=== PATIENT | female | born 1970 | race Two or more races ===

== ENCOUNTER 2018-06-05 11:54 | Inpatient (IN) | payer OTHER ==
[2018-06-04 09:05] VITALS: BMI 33.8
[2018-06-05] MEDS ORDERED: BENZOIN TINCTURE SWABSTICK TP ONE (13:44)
[2018-06-05] MEDS ORDERED: HEPARIN NA (PORCINE) 5,000 UNITS/ML 1ML VIAL ONE (13:44)
[2018-06-05] MEDS ORDERED: THROMBIN (BOVINE) 5,000 UNIT VIAL TP ONE (13:45)
[2018-06-05] MEDS ORDERED: DEXAMETHASONE SOD PHOSPHATE 4 MG/1 ML VIAL ONE (15:45)
[2018-06-05] MEDS ORDERED: fentaNYL CITRATE 250 MCG/5 ML VIAL ONE (15:45)
[2018-06-05] MEDS ORDERED: ONDANSETRON 4 MG/2 ML VIAL ONE ×2 (15:45→19:10)
[2018-06-05] MEDS ORDERED: MIDAZOLAM HCL 2 MG/2 ML SINGLE DOSE VIAL ONE (15:46)
[2018-06-05] MEDS ORDERED: ROCURONIUM BROMIDE 50 MG/5 ML VIAL ONE (15:46)
[2018-06-05] MEDS ORDERED: PROPOFOL 20 ML ONE ×10 (15:46→19:36)
[2018-06-05] MEDS ORDERED: HYDROmorphone HCl 2 MG/ML VIAL ONE ×2 (17:18→17:35)
[2018-06-05] MEDS ORDERED: ceFAZolin SODIUM 1 GM VIAL IVPB ONE (17:20)
[2018-06-05] MEDS ORDERED: VANCOMYCIN 1,000 MG VIAL (RESTRICTED TO ID ONLY) IVPB ONE (17:45)
[2018-06-05] MEDS ORDERED: ePHEDrine SULFATE 50 MG/1 ML AMPULE ONE (17:53)
[2018-06-05] MEDS ORDERED: GLYCOPYRROLATE 0.2 MG/1 ML VIAL ONE (19:10)
[2018-06-05] MEDS ORDERED: NEOSTIGMINE METHYLSULFATE 0.5 MG/1 ML - 10 ML MDV ONE (19:10)
[2018-06-05] MEDS ORDERED: ceFAZolin SODIUM 1 GM VIAL ONE (19:50)
[2018-06-05] MEDS ORDERED: SODIUM CHLORIDE 1,000 ML IV SCH (21:00)
[2018-06-05] MEDS ORDERED: ACETAMINOPHEN INJECTION 100 ML IVPB ONE (21:05)
[2018-06-05] MEDS ORDERED: HYDROmorphone *PCA* 10MG/50ML DISP.SYRIN PCA ONE (21:05)
[2018-06-05] MEDS ORDERED: BENZOCAINE/MENTH/CETYLPYRD CL 1 EACH LOZENGE MM PRN ×2 (22:56→23:16)
[2018-06-05] MEDS ORDERED: DOCUSATE NA 100 MG/10 ML UNIT-DOSE CUPS PO PRN (22:58)
[2018-06-05] MEDS ORDERED: ONDANSETRON 4 MG TABLET PO PRN (22:59)
--- NOTE | 2018-06-05 23:14 | CONSULT ---
Consultation: REQUESTING PROVIDER: CONSULT REQUEST: We have been asked to medically evaluate this patient for ICU. HISTORY OF PRESENT ILLNESS: Pt is a 48 y/o F with PMH fibromyalgia, gerd, hiatal hernia, htn, hypothyroid, neuropathy, obesity, zain, panic disorder, sciatica, spinal stenosis who had cervical fusion this afternoon. On my interview, pt was somewhat somnolent and unable to give meaningful history. Denies pain/discomfort at this time. REVIEW OF SYSTEMS: CONSTITUTIONAL: Absent: fever, chills, diaphoresis, generalized weakness, malaise, loss of appetite, weight change HEENT: Absent: rhinorrhea, nasal congestion, throat pain, throat swelling, difficulty swallowing, mouth swelling, ear pain, eye pain, visual changes CARDIOVASCULAR: Absent: chest pain, syncope, palpitations, irregular heart rate, lightheadedness , peripheral edema RESPIRATORY: Absent: cough, shortness of breath, dyspnea with exertion, orthopnea, wheezing, stridor, hemoptysis GASTROINTESTINAL: Absent: abdominal pain, abdominal distension, nausea, vomiting, diarrhea, constipation, melena, hematochezia GENITOURINARY: Absent: dysuria, frequency, urgency, hesitancy, hematuria, flank pain, genital pain MUSCULOSKELETAL: Absent: myalgia, arthralgia, joint swelling, back pain, neck pain SKIN: Absent: rash, itching, pallor HEMATOLOGIC/IMMUNOLOGIC: Absent: easy bleeding, easy bruising, lymphadenopathy, frequent infections ENDOCRINE: Absent: unexplained weight gain, unexplained weight loss, heat intolerance, cold intolerance NEUROLOGIC: Absent: headache, focal weakness or paresthesias, dizziness, unsteady gait, seizure, mental status changes, bladder or bowel incontinence PSYCHIATRIC: Absent: anxiety, depression, suicidal or homicidal ideation, hallucinations. PHYSICAL EXAMINATION Vital Signs - 24 hr 06/05/18 12:48 Temperature 97.7 F Pulse Rate 74 Respiratory 16 Rate Blood Pressure 110/64 O2 Sat by Pulse 98 Oximetry (%) Gen: Somnolent HEENT: NCAT Neck: no jvd, surgical site cdi Cardio: rrr, normal s1s2, no mrg Pulm: cta bl abd: obese, nondistended, soft, nontender, diminished bowel sounds Ext: no edema Laboratory Results - last 24 hr 06/05/18 06/05/18 12:12 13:30 Blood Type B POSITIVE B POSITIVE Antibody Screen Negative Active Medications Generic Name Dose Route Start Last Admin Trade Name Freq PRN Reason Stop Dose Admin Pneumococcal 13-Valent Conj Vacc 0.5 ml 06/06/18 12:41 Prevnar 13 Syringe - IM 06/06/18 12:42 .ONCE ONE ASSESSMENT/PLAN: Pt is a 48 y/o F with PMH fibromyalgia, gerd, hiatal hernia, htn, hypothyroid, neuropathy, obesity, zain, panic disorder, sciatica, spinal stenosis who had cervical fusion this afternoon. #s/p cervical fusion pod#0 -orders per surgery -ancef -decadron -oxycodone -cbc, cmp daily -neuro monitor q 2h -liquid diet. advance to soft as tolerated -cepachol lozenge -vital signs q4h -monitor I/O -OOB w/ assist -keep dressing in place -stool softeners -zofran -protonix -NO NSAIDS x 3 months -Shower friday (keep dressing covered) -Possible D/C Friday. D/C instructions in paper chart #HTN -hold coreg, spironolactone #GERD -hold ranitidine -on protonix #ZAIN -c/w cpap Note: Will hold home meds until pt is awake to take po. HR and BP currently wnl. Coreg 12.5mg Ergocalciferol 50,000u Hydrocodone-acetaminophen 1 tab BID Simvastatin 20 Spironolactone 25 Venlafaxine 37.5 Zolpidem 6.25 Duloxetine 20 Ranitidine 300 Tramadol 50 Dispo: We will continue to follow the patient. Thank you for this consultative opportunity. Visit type - Emergency Visit Emergency Visit: Yes ED Registration Date: 06/05/18 Care time: The patient presented to the Emergency Department on the above date and was hospitalized for further evaluation of their emergent condition. - New Patient This patient is new to me today: Yes Date on this admission: 06/05/18 - Critical Care Critical Care patient: Yes Total Critical Care Time (in minutes): 45 Critical Care Statement: The care of this patient involved high complexity decision making to prevent further life threatening deterioration of the patient 's condition and/or to evaluate & treat vital organ system(s) failure or risk of failure.
[2018-06-06] MEDS: ceFAZolin 1 GRAM PREMIX BAG IVPB SCH ×2 (01:21→08:45)
[2018-06-06] MEDS: oxyCODONE HCL 5 MG TABLET PO SCH ×5 (01:22→16:59)
[2018-06-06] MEDS ORDERED: HYDROmorphone *PCA* 10MG/50ML DISP.SYRIN PCA SCH (01:45)
--- NOTE | 2018-06-06 04:48 | PN ---
Physical Exam: SUBJECTIVE: Patient seen and examined at bedside. POD 0 C5-7 anterior discectomy /laminectomy w/ fusion. Patient states pain controlled w/ ASSOCIATE TEACHER. No other complaints. OBJECTIVE: Vital Signs Period Temp Pulse Resp BP Sys/Nam Pulse Ox Last 24 Hr 97.3 F-98 F 58-74 12-16 92-110/61-85 98-98 GENERAL: The patient is awake, alert, and fully oriented, in no acute distress. HEAD: Normal with no signs of trauma. EYES: PERRL, extraocular movements intact, sclera anicteric, conjunctiva clear. No ptosis. NECK: There is a surgical bandage over the anterior neck where incision was made. Bandage in mildy soaked with blood. No active drainage of bleeding seen. LUNGS: Breath sounds equal, clear to auscultation bilaterally, no wheezes, no crackles, no accessory muscle use. HEART: Regular rate and rhythm, S1, S2 without murmur, rub or gallop. ABDOMEN: Soft, nontender, nondistended, normoactive bowel sounds, no guarding, no rebound, no hepatosplenomegaly, no masses. EXTREMITIES: 2+ pulses, warm, well-perfused, no edema. NEUROLOGICAL: Cranial nerves II through X grossly intact. Normal speech. strength 5/5 in all 4 limbs SKIN: Warm, dry, normal turgor, no rashes or lesions noted Laboratory Results - last 24 hr 06/05/18 06/05/18 12:12 13:30 Blood Type B POSITIVE B POSITIVE Antibody Screen Negative Active Medications Generic Name Dose Route Start Last Admin Trade Name Freq PRN Reason Stop Dose Admin Acetaminophen 650 mg 06/06/18 04:00 Tylenol - PO Q6H PRN PAIN OR FEVER Benzocaine/Menthol 1 each 06/05/18 22:56 Cepacol Lozenge - MM PRN PRN SORE THROAT Cefazolin Sodium 1 gm 06/06/18 01:10 06/06/18 01:21 Ancef 1 Gm Premixed Ivpb - IVPB 06/06/18 09:11 1 gm Q8H MIKAELA Administration Dexamethasone Sodium Phosphate 10 mg 06/06/18 09:00 Decadron Injection - IVPUSH 06/06/18 09:01 ONCE ONE Docusate Sodium 100 mg 06/05/18 22:58 Colace Liquid - PO DAILY PRN CONSTIPATION Hydromorphone HCl 10 mg 06/06/18 01:45 Dilaudid Wedding Planner - ASSOCIATE TEACHER 06/13/18 01:33 ASSOCIATE TEACHER MIKAELA Protocol Sodium Chloride 1,000 mls @ 100 mls/hr 06/05/18 21:00 06/06/18 01:07 Normal Saline - IV Not Given ASDIR MIKAELA Cefazolin Sodium 1 gm in 50 mls @ 100 mls/hr 06/05/18 23:00 Ancef 1 Gm Premixed Ivpb - IVPB 06/06/18 23:00 Q8H-IV MIKAELA Ondansetron HCl 4 mg 06/05/18 21:00 Zofran Injection IVPUSH Q6H PRN NAUSEA AND/OR VOMITING Ondansetron HCl 4 mg 06/05/18 22:59 Zofran - PO Q6H PRN NAUSEA AND/OR VOMITING Oxycodone HCl 10 mg 06/06/18 00:00 06/06/18 01:29 Roxicodone - PO Not Given Q6HPO MIKAELA Oxycodone HCl 10 mg 06/05/18 22:54 Roxicodone - PO Q6H PRN PAIN LEVEL 1-5 Pantoprazole Sodium 40 mg 06/06/18 10:00 Protonix Iv IVPUSH DAILY MIKAELA Pneumococcal 13-Valent Conj Vacc 0.5 ml 06/06/18 12:41 Prevnar 13 Syringe - IM 06/06/18 12:42 .ONCE ONE ASSESSMENT/PLAN: Pt is a 48 y/o F with PMH fibromyalgia, gerd, hiatal hernia, htn, hypothyroid, neuropathy, obesity, zain, panic disorder, sciatica, spinal stenosis who is POD0 c5-7 discectomy and fusion w/ Dr. Taylor. #POD 0 c5-7 discectomy and fusion -dilaudid ASSOCIATE TEACHER for pain control -NPO until flatus -activity/PT as per Dr. Taylor -resume home medications -holding flexeril and ambien while on ASSOCIATE TEACHER -holding lasix while on fluids #FEN -NS @ 100 -lytes WNL -NPO until flatus #Prophy -holding AC -TEDS and SCDs as per Dr. Taylor #dispo -admit ICU Visit type - Emergency Visit Emergency Visit: Yes ED Registration Date: 06/05/18 Care time: The patient presented to the Emergency Department on the above date and was hospitalized for further evaluation of their emergent condition. - New Patient This patient is new to me today: Yes Date on this admission: 06/06/18 - Critical Care Critical Care patient: Yes Total Critical Care Time (in minutes): 40 Critical Care Statement: The care of this patient involved high complexity decision making to prevent further life threatening deterioration of the patient 's condition and/or to evaluate & treat vital organ system(s) failure or risk of failure. - Discharge Referral Referred to [facility] Med P.C.: No
[2018-06-06] MEDS: CEFAZOLIN 1 GM/D5W 1 GM/50 ML BAG IVPB SCH ×2 (04:49→04:50)
[2018-06-06 06:03] LABS: BASO % 0.2 % (0-2.0); HEMATOCRIT 36.7 % (32.4-45.2); HEMOGLOBIN 12.7 GM/dL (10.7-15.3); LYMPH % 7.6 % (8-40); MCH 30.6 pg (25.7-33.7); MCHC 34.6 g/dl (32.0-36.0); MEAN CELL VOLUME 88.3 fl (80-96); MEAN PLT VOLUME 7.3 fl (7.5-11.1); MONO % 3.2 % (3.8-10.2); PLATELET COUNT 252 K/MM3 (134-434); RBC 4.16 M/mm3 (3.60-5.2); RDW 13.5 % (11.6-15.6); WHITE BLOOD COUNT 10.1 K/mm3 (4.0-10.0)
[2018-06-06 06:41] LABS: ALK PHOS 146 U/L (45-117); ANION GAP 4 MMOL/L (8-16); BILIRUBIN,TOTAL 0.3 mg/dL (0.2-1); BLOOD UREA NITROGEN 14 mg/dL (7-18); CALCIUM 8.2 mg/dL (8.5-10.1); CHLORIDE 105 mmol/L (98-107); CO2 27 mmol/L (21-32); CREATININE 0.9 mg/dL (0.55-1.3); GLUCOSE,RANDOM 112 mg/dL (74-106); POTASSIUM 4.2 mmol/L (3.5-5.1); SGOT/AST 19 U/L (15-37); SGPT/ALT 22 U/L (13-61); SODIUM 137 mmol/L (136-145); TOT PROT 7.2 g/dl (6.4-8.2)
--- NOTE | 2018-06-06 06:50 | PN ---
Teaching Attending Note Name of Resident: Diogenes Henson ATTENDING PHYSICIAN STATEMENT I saw and evaluated the patient. I reviewed the resident's note and discussed the case with the resident. I agree with the resident's findings and plan as documented. SUBJECTIVE: Seen and examined; please refer to resident note for further info. Thank you Dr. Taylor for allowing us to take part in the care of your patient. Seen in ICU. Slightly drousy. Pain controlled. No flatus or BM 10 sys ROS done and negative aside from HPI OBJECTIVE: VS, labs, imaging reviewed NAD, AAO, resting comfortably in bed NC AT EOMI PERRLA Neck with dressing ant, c/d/i, no s/s infection RRR s1/2 no mgr Lungs CTAB, w/ sym exp CN2-12 wnl, no fnd Normal mood, appropriate behavior Tele reviewed operative reports reviewed ASSESSMENT AND PLAN: Patient presents for cervical fusion with Dr. Taylor; POD#0. 1) POD#0 Cervical Fusion -Ultimate management per sgy; no flatus yet. Advance diet per them. Consider DC fluids today as she complains that she swells up and is on lasix. -Pain control, ancef, decadron, monitor neuro checks. -Further management per ICU team 2) HTN -continue home meds; she states the lasix is for HTN and 'fluid retention) so will hold for now as on fluids but resume once OK to DC these 3) GERD -On protonix 4) CIARA -CPAP 5) Fibromyalgia -Continue home meds 6) Hypothyroid -TSH as OP 7) Obesity -General Pediatrician prior to DC Full Code
--- NOTE | 2018-06-06 07:37 | OP ---
DATE OF OPERATION: 06/05/2018 SURGEON: Preet Taylor MD MATERIAL CONTROLLER: SONIDO Rao PREOPERATIVE DIAGNOSIS: C5-C6 and C6-C7 osteophyte disc complex with spinal stenosis, cervical spondylogenic myelopathy and left C6 and C7 radiculopathy. POSTOPERATIVE DIAGNOSIS: C5-C6 and C6-C7 osteophyte disc complex with spinal stenosis, cervical spondylogenic myelopathy and left C6 and C7 radiculopathy. OPERATION PERFORMED: 1. Anterior cervical approach. 2. Anterior cervical discectomy C5-C6, anterior cervical discectomy C6-C7. 3. Partial colpectomy C5, partial colpectomy C6, partial colpectomy C7. 4. Insertion of cage C5-C6 and C6-C7 (biomechanical interbody device x2). 5. Anterior arthrodesis C5-C6, C6-C7. 6. Anterior plating C5-C6, C6-C7. ANESTHESIA: General. ANTIBIOTICS GIVEN: Kefzol 2 g, vancomycin 1 g, Decadron 10 mg given preoperatively. OPERATION IN DETAIL: The patient was correctly identified, brought in the operating room. Imaging was available for intraoperative evaluation. Time-out was called. Patient was placed supine, and bolsters were placed behind the scapulae extending the neck. The shoulders were taped peripherally, distally. Neuromonitoring was performed showing the appropriate levels. At the level of the cricothyroid interval in the lines of Teodoro, an incision was made exposing the platysma. The platysma was split longitudinally. The split platysma enabled easy access to the , that is the plane lateral to the strap muscles with digital palpation, the anterior vertebral bodies were easily palpated, the discs identified, and an 18-gauge needle placed into the C4-C5 disc. This was verified with a lateral fluoroscopic x-ray. At that point, the longus coli with unipolar Bovie was dissected off the actual left and right hand side of the vertebral bodies. Retractors placed in the teeth of the muscle. A [place] pin was placed in C5, and a [place] pin placed in C6. This was verified with another lateral fluoroscopic x-ray. The entire disc using an anulectomy removing the annulus and associated all the disc material with curettes, and using a Midas Yury nelida with a 40-mm betty tip, the bone of the vertebral body was resected in order to achieve the seating of a cage. This was a rectangular cut. Once the cuts had been made, this enabled the seating of a size 8 40-link cage. Once this had been performed and the uncovertebral joints resected using the nelida, the posterior longitudinal ligament was then resected using No. 1 and 2 Kerrison upcuts. The underlying osteophytes all removed, freeing the dura completely from left to right hand side, and ensuring that the lateral gutters were freed and sealed. Hemostasis was achieved. A size 8 cage inserted. The distraction of the discs with the [place] pin device enabled a ligamentotaxis hold on the cage. As the distraction was released, the cage was solidly fixed. The middle [place] pin was left in situ, that is, the [place] Pin in C6, and the C7 vertebral body exposed. Retractors were repositioned to enable this. The annulus was resected, and the entire disc removed in exactly the same way using Midas Yury nelida to create the rectangle and partial colpectomy at C6 and C7 just as we performed the partial colpectomy at C5 and C6. The posterior longitudinal ligaments were identified. The ligament was resected as it was at C5-C6 exposing the theca and dura completely. The size 9 cage measured here with distraction. This enabled a solid fixation of the cages. A 2-level 32-mm Simplicity plate was applied. The 6 screws that were 6 x 12 mm screws were fixed solidly into C5, C6, and C7. Gratifying procedure, all went well. There was thorough lavage. Hemostasis was sound. Closure platysma 2-0 Vicryl, subcutaneous 2-0 Vicryl, skin 3-0 Monocryl with Steri-Strips. No drains utilized. Operation went well, no complications. MD PIEDAD Chong/[id number]
[2018-06-06] MEDS ORDERED: PT OWN MED DRAWER 7, Y5N ONE (08:23)
[2018-06-06] MEDS: ONDANSETRON 4 MG/2 ML VIAL IVPUSH PRN ×2 (08:27→11:00)
--- NOTE | 2018-06-06 08:46 | HOSP ---
Subjective - Review of Symptoms Subjective: asymptomatic. continues to have numbness in LUE which she states she had prior to surgery. denies CP, SOB, fever, chills, N/V/C/D Current Medications Generic Name Dose Route Start Last Admin Trade Name Freq PRN Reason Stop Dose Admin Acetaminophen 650 mg 06/06/18 04:00 Tylenol - PO Q6H PRN PAIN OR FEVER Benzocaine/Menthol 1 each 06/05/18 22:56 Cepacol Lozenge - MM PRN PRN SORE THROAT Carvedilol 12.5 mg 06/06/18 22:00 Coreg - PO HS MIKAELA Carvedilol 25 mg 06/06/18 10:00 Coreg - PO DAILY MIKAELA Cefazolin Sodium 1 gm 06/06/18 01:10 06/06/18 01:21 Ancef 1 Gm Premixed Ivpb - IVPB 06/06/18 09:11 1 gm Q8H MIKAELA Administration Dexamethasone Sodium Phosphate 10 mg 06/06/18 09:00 06/06/18 08:29 Decadron Injection - IVPUSH 06/06/18 09:01 10 mg ONCE ONE Administration Docusate Sodium 100 mg 06/05/18 22:58 Colace Liquid - PO DAILY PRN CONSTIPATION Furosemide 40 mg 06/06/18 10:00 Lasix - PO DAILY REPLACED BY [facility] Hydromorphone HCl 10 mg 06/06/18 01:45 06/06/18 04:49 Dilaudid Cash Accountant - LOOM CHANGEOVER OPERATOR 06/13/18 01:33 Not Given LOOM CHANGEOVER OPERATOR REPLACED BY [facility] Protocol Sodium Chloride 1,000 mls @ 100 mls/hr 06/05/18 21:00 06/06/18 01:07 Normal Saline - IV Not Given ASDIR MIKAELA Ondansetron HCl 4 mg 06/05/18 21:00 Zofran Injection IVPUSH Q6H PRN NAUSEA AND/OR VOMITING Ondansetron HCl 4 mg 06/05/18 22:59 Zofran - PO Q6H PRN NAUSEA AND/OR VOMITING Oxycodone HCl 10 mg 06/06/18 00:00 06/06/18 06:00 Roxicodone - PO Not Given Q6HPO MIKAELA Oxycodone HCl 10 mg 06/05/18 22:54 Roxicodone - PO Q6H PRN PAIN LEVEL 1-5 Pantoprazole Sodium 40 mg 06/06/18 10:00 Protonix Iv IVPUSH DAILY MIKAELA Pneumococcal 13-Valent Conj Vacc 0.5 ml 06/06/18 12:41 Prevnar 13 Syringe - IM 06/06/18 12:42 .ONCE ONE Spironolactone 12.5 mg 06/06/18 10:00 Aldactone - PO DAILY MIKAELA Last Vital Signs Temp Pulse Resp BP Pulse Ox 98.2 F 74 16 117/74 100 06/06/18 07:35 06/06/18 07:35 06/06/18 07:35 06/06/18 07:35 06/06/18 07:36 General NAD HEENT anterior cervical bandage iwth dried blood CV S1 S2 RRR no murmur/rub/gallop Lungs CTA B/L no wheezing/rales/rhonchi Abdomen soft NT/ND Extremities no pedal edema, sensation and strength grossly intact CBCD WBC 10.1 K/mm3 (4.0-10.0) H 06/06/18 05:30 RBC 4.16 M/mm3 (3.60-5.2) 06/06/18 05:30 Hgb 12.7 GM/dL (10.7-15.3) 06/06/18 05:30 Hct 36.7 % (32.4-45.2) 06/06/18 05:30 MCV 88.3 fl (80-96) 06/06/18 05:30 MCHC 34.6 g/dl (32.0-36.0) 06/06/18 05:30 RDW 13.5 % (11.6-15.6) 06/06/18 05:30 Plt Count 252 K/MM3 (134-434) 06/06/18 05:30 MPV 7.3 fl (7.5-11.1) L 06/06/18 05:30 CMP Sodium 137 mmol/L (136-145) 06/06/18 05:30 Potassium 4.2 mmol/L (3.5-5.1) 06/06/18 05:30 Chloride 105 mmol/L (98-107) 06/06/18 05:30 Carbon Dioxide 27 mmol/L (21-32) 06/06/18 05:30 Anion Gap 4 MMOL/L (8-16) L 06/06/18 05:30 BUN 14 mg/dL (7-18) 06/06/18 05:30 Creatinine 0.9 mg/dL (0.55-1.3) 06/06/18 05:30 Creat Clearance w eGFR > 60 (>60) 06/06/18 05:30 Calcium 8.2 mg/dL (8.5-10.1) L 06/06/18 05:30 Total Bilirubin 0.3 mg/dL (0.2-1) 06/06/18 05:30 AST 19 U/L (15-37) 06/06/18 05:30 ALT 22 U/L (13-61) 06/06/18 05:30 Alkaline Phosphatase 146 U/L (45-117) H 06/06/18 05:30 Total Protein 7.2 g/dl (6.4-8.2) 06/06/18 05:30 Albumin 3.0 g/dl (3.4-5.0) L 06/06/18 05:30 A/P 48yo F wtih PMH HTN, GERD, CIARA on Cpap, hypothyroid came for elective cervical fusion surgery 1. s/p C5-C7 cervical fusion- currently pain is controlled on LOOM CHANGEOVER OPERATOR pump. will switch to oral medications. further recommendations per ortho. 2. Leukocytosis- likely reactive from surgery. no signs of infection. received yobani-operative abx. will hold more abx at this time 3. HTN- cont home medications 4. CIARA- has home CPAP machine 5. hypothyroid- cont home medications 6. DVT ppx- SCD 7. stable for transfer to floors The care of this patient involved high complexity decision making to prevent further life threatening deterioration of the patient's condition and/or to evaluate & treat vital organ system(s) failure or risk of failure. 38 minutes Physical Examination Vital Signs: Vital Signs Temperature 98.2 F 06/06/18 07:35 Pulse Rate 74 06/06/18 07:35 Respiratory Rate 16 06/06/18 07:35 Blood Pressure 117/74 06/06/18 07:35 O2 Sat by Pulse Oximetry (%) 100 06/06/18 07:36 Labs: CBC, BMP 06/06/18 05:30 06/06/18 05:30
[2018-06-06] MEDS ORDERED: DEXAMETHASONE SOD PHOSPHATE 10 MG/1 ML VIAL IVPUSH ONE ×2 (09:00→10:00)
[2018-06-06] MEDS ORDERED: PANTOPRAZOLE SODIUM 40 MG VIAL IVPUSH SCH (10:00)
[2018-06-06] MEDS ORDERED: CARVEDILOL 25 MG TABLET (FP) PO SCH (10:00)
[2018-06-06] MEDS ORDERED: SPIRONOLACTONE 25 MG TABLET (FP) PO SCH (10:00)
[2018-06-06] MEDS ORDERED: FUROSEMIDE 40 MG TABLET (FP) PO SCH (10:00)
[2018-06-06] MEDS: ACETAMINOPHEN 325 MG TABLET (FP) PO PRN ×2 (10:55→16:59)
[2018-06-06] MEDS: oxyCODONE HCL 5 MG TABLET PO PRN ×2 (10:55→22:46)
--- NOTE | 2018-06-06 10:55 | PN ---
Progress Note (short form) - Note Progress Note: Anesthesiology: POD #1 - s/p ACDF under general anesthesia. VSS. Pt. doing well, resting comfortably in bed. No apparent anesthetic complications noted. Continue current care.
[2018-06-06] MEDS ORDERED: CYCLOBENZAPRINE HCL 10 MG TABLET (FP) PO PRN (11:34)
[2018-06-06] MEDS ORDERED: GABAPENTIN 100 MG CAPSULE (FP) PO SCH (11:45)
[2018-06-06] MEDS ORDERED: PNEUMOC 13-VAL CONJ-DIP CRM/PF 0.5 ML DISP.SYRIN IM ONE (12:41)
[2018-06-06] MEDS: GABAPENTIN 300 MG CAPSULE (FP) PO SCH ×2 (15:02→22:58)
[2018-06-06] MEDS ORDERED: PNEUMOCOCCAL 23 VACCINE 0.5 ML VIAL IM ONE (18:15)
--- NOTE | 2018-06-06 18:39 | PN ---
Progress Note (short form) - Note Progress Note: POD#1 C/O Sore throat and mild trapezial discomfort Wound Serosangeouness moist bandage Neuro Hand symptoms gratifyingly better neuro at baseline Voice Normal Swallowing Normal Neck No swelling Assess Doing well PLAN D/C home Friday Pain Mx PT FWBAT Keep wound dry See in office in 5 days
[2018-06-06] MEDS ORDERED: CYCLOBENZAPRINE HCL 10 MG TABLET (FP) PO SCH (22:00)
[2018-06-06] MEDS ORDERED: CARVEDILOL 12.5 MG TABLET (FP) PO SCH (22:00)
[2018-06-07] MEDS: oxyCODONE HCL 5 MG TABLET PO SCH ×4 (00:19→17:31)
[2018-06-07] MEDS ORDERED: BENZOCAINE/MENTH/CETYLPYRD CL 1 EACH LOZENGE MM PRN (07:18)
[2018-06-07] MEDS ORDERED: ACETAMINOPHEN 325 MG TABLET (FP) PO PRN (07:18)
[2018-06-07] MEDS ORDERED: ONDANSETRON 4 MG/2 ML VIAL IVPUSH PRN (07:18)
[2018-06-07] MEDS ORDERED: oxyCODONE HCL 5 MG TABLET PO PRN (07:18)
[2018-06-07] MEDS ORDERED: ONDANSETRON 4 MG TABLET PO PRN (07:18)
[2018-06-07] MEDS ORDERED: DOCUSATE NA 100 MG/10 ML UNIT-DOSE CUPS PO PRN (07:18)
[2018-06-07 07:54] LABS: BASO % 0.2 % (0-2.0); EOS % 0.1 % (0-4.5); HEMATOCRIT 35.3 % (32.4-45.2); LYMPH % 12.7 % (8-40); MCH 30.2 pg (25.7-33.7); MCHC 34.1 g/dl (32.0-36.0); MEAN CELL VOLUME 88.8 fl (80-96); MEAN PLT VOLUME 7.7 fl (7.5-11.1); PLATELET COUNT 271 K/MM3 (134-434); RBC 3.98 M/mm3 (3.60-5.2); RDW 13.7 % (11.6-15.6); WHITE BLOOD COUNT 14.7 K/mm3 (4.0-10.0)
[2018-06-07] MEDS ORDERED: DOCUSATE NA 100 MG/10 ML UNIT-DOSE CUPS PO SCH (08:15)
[2018-06-07 08:33] LABS: ANION GAP 6 MMOL/L (8-16); BLOOD UREA NITROGEN 14 mg/dL (7-18); CALCIUM 8.3 mg/dL (8.5-10.1); CHLORIDE 106 mmol/L (98-107); CO2 28 mmol/L (21-32); CREATININE 0.8 mg/dL (0.55-1.3); GLUCOSE,RANDOM 106 mg/dL (74-106); POTASSIUM 4.5 mmol/L (3.5-5.1); SODIUM 139 mmol/L (136-145)
[2018-06-07] MEDS ORDERED: PT OWN MED DRAWER 7, Y5N ONE (09:55)
[2018-06-07] MEDS: CARVEDILOL 25 MG TABLET (FP) PO SCH (09:56)
[2018-06-07] MEDS: PANTOPRAZOLE 40 MG TABLET (FP) PO SCH (09:56)
[2018-06-07] MEDS: FUROSEMIDE 40 MG TABLET (FP) PO SCH (09:56)
[2018-06-07] MEDS: CYANOCOBALAMIN 1,000 MCG TABLET (FP) PO SCH (09:56)
[2018-06-07] MEDS: GABAPENTIN 300 MG CAPSULE (FP) PO SCH ×2 (09:56→21:27)
[2018-06-07] MEDS: CHOLECALCIFEROL (VITAMIN D3) 400 UNIT TABLET (FP) PO SCH (09:57)
[2018-06-07] MEDS: SPIRONOLACTONE 25 MG TABLET (FP) PO SCH (09:58)
[2018-06-07] MEDS ORDERED: PANTOPRAZOLE SODIUM 40 MG VIAL IVPUSH SCH (10:00)
--- NOTE | 2018-06-07 10:29 | PN ---
Teaching Attending Note Name of Resident: Tony Ervin ATTENDING PHYSICIAN STATEMENT I saw and evaluated the patient. I reviewed the resident's note and discussed the case with the resident. I agree with the resident's findings and plan as documented. SUBJECTIVE:states pain is improved with pain medication. denies CP, SOB, fever, chills, N/V/C/D OBJECTIVE: Last Vital Signs Temp Pulse Resp BP Pulse Ox 98.2 F 62 20 128/78 100 06/07/18 06:56 06/07/18 06:56 06/07/18 06:56 06/07/18 06:56 06/06/18 07:36 General NAD HEENT anterior cervical bandage wtih dried blood noted. no active draining Lungs CTA B/L no wheezing/rales/rhonchi ASSESSMENT AND PLAN: 48yo F wtih PMH HTN, GERD, CIARA on Cpap, hypothyroid came for elective cervical fusion surgery 1. s/p C5-C7 cervical fusion on 06/05. pain improved. further recommendations per ortho. 2. Leukocytosis- likely reactive from surgery. no signs of infection. received yobani-operative abx. will hold abx at this time 3. HTN- cont home medications 4. CIARA- has home CPAP machine 5. hypothyroid- cont home medications 6. DVT ppx- SCD 7. PT eval. anticipate d/c in next 24H
--- NOTE | 2018-06-07 10:45 | PN ---
Physical Exam: SUBJECTIVE: Patient seen and examined at bedside. POD1 C5-7 anterior discectomy/ laminectomy w/ fusion. Patient states pain improved w/ meds. No other complaints. denies CP, SOB, fever, chills, N/V/C/D, numbness, tingling OBJECTIVE: Vital Signs Period Temp Pulse Resp BP Sys/Nam Pulse Ox Last 24 Hr 97.9 F-98.2 F 60-68 16-20 120-129/77-91 GENERAL: The patient is awake, alert, and fully oriented, in no acute distress. HEAD: Normal with no signs of trauma. EYES: PERRL, extraocular movements intact, sclera anicteric, conjunctiva clear. No ptosis. ENT: nares patent, oropharynx clear without exudates, moist mucous membranes. anterior cervical bandage with dried blood noted. no active draining NECK: Trachea midline, full range of motion, supple. LUNGS: CTAB HEART: RRR, S1, S2 without murmur, rub or gallop. ABDOMEN: Soft, NTND, normoactive bowel sounds, no guarding, no rebound, no masses. EXTREMITIES: 2+ pulses, warm, well-perfused, no edema. NEUROLOGICAL: Cranial nerves II through XII grossly intact. Normal speech, gait not observed. sensation strength grossly intact PSYCH: Normal mood, normal affect. SKIN: Warm, dry, normal turgor, no rashes or lesions noted Laboratory Results - last 24 hr 06/07/18 06/07/18 07:00 07:00 WBC 14.7 H RBC 3.98 Hgb 12.0 Hct 35.3 MCV 88.8 MCH 30.2 MCHC 34.1 RDW 13.7 Plt Count 271 MPV 7.7 Absolute Neuts (auto) 11.5 H Neutrophils % 78.0 Lymphocytes % 12.7 D Monocytes % 9.0 D Eosinophils % 0.1 D Basophils % 0.2 Nucleated RBC % 0 Sodium 139 Potassium 4.5 Chloride 106 Carbon Dioxide 28 Anion Gap 6 L BUN 14 Creatinine 0.8 Creat Clearance w eGFR > 60 Random Glucose 106 Calcium 8.3 L Active Medications Generic Name Dose Route Start Last Admin Trade Name Freq PRN Reason Stop Dose Admin Acetaminophen 650 mg 06/07/18 07:18 Tylenol - PO Q6H PRN PAIN OR FEVER Atorvastatin Calcium 10 mg 06/07/18 22:00 Lipitor - PO HS [facility] Benzocaine/Menthol 1 each 06/07/18 07:18 Cepacol Lozenge - MM PRN PRN SORE THROAT Carvedilol 12.5 mg 06/07/18 22:00 Coreg - PO HS MIKAELA Carvedilol 25 mg 06/07/18 10:00 06/07/18 09:56 Coreg - PO 25 mg DAILY MIKAELA Administration Cholecalciferol 400 unit 06/07/18 10:00 06/07/18 09:57 Vitamin D3 - PO 400 unit DAILY MIKAELA Administration Cyanocobalamin 1,000 mcg 06/07/18 10:00 06/07/18 09:56 Vitamin B12 - PO 1,000 mcg DAILY MIKAELA Administration Cyclobenzaprine HCl 10 mg 06/07/18 22:00 Flexeril - PO HS [facility] Docusate Sodium 100 mg 06/07/18 14:00 Colace - PO TID MIKAELA Furosemide 40 mg 06/07/18 10:00 06/07/18 09:56 Lasix - PO 40 mg DAILY MIKAELA Administration Gabapentin 300 mg 06/07/18 10:00 06/07/18 09:56 Neurontin - PO 300 mg BID MIKAELA Administration Ondansetron HCl 4 mg 06/07/18 07:18 Zofran Injection IVPUSH Q6H PRN NAUSEA AND/OR VOMITING Oxycodone HCl 10 mg 06/07/18 07:18 Roxicodone - PO Q6H PRN PAIN LEVEL 1-5 Oxycodone HCl 10 mg 06/07/18 12:00 Roxicodone - PO Q6HPO [facility] Pantoprazole Sodium 40 mg 06/07/18 10:00 06/07/18 09:56 Protonix - PO 40 mg DAILY MIKAELA Administration Senna 2 tab 06/07/18 22:00 Senna - PO HS [facility] Spironolactone 12.5 mg 06/07/18 10:00 06/07/18 09:58 Aldactone - PO 12.5 mg DAILY MIKAELA Administration ASSESSMENT/PLAN: Pt is a 48 y/o F with PMH fibromyalgia, gerd, hiatal hernia, htn, hypothyroid, neuropathy, obesity, ciara, panic disorder, sciatica, spinal stenosis who is POD1 c5-7 discectomy and fusion w/ Dr. Taylor. s/p C5-C7 cervical fusion on 06/05 pain improved. further recommendations per ortho - See in office in 5 days, bowel regimen Leukocytosis- likely reactive from surgery. no signs of infection, afebrile. received yobani-operative abx. will hold abx at this time HTN- cont home medications CIARA- has home CPAP machine hypothyroid- cont home medications FENA PO hydration replete prn low Na diet encourage ambulation ppx- SCD protonix po Dispo PT eval. anticipate d/c in next 24H See in ortho office in 5 days Visit type - Emergency Visit Emergency Visit: Yes ED Registration Date: 06/05/18 Care time: The patient presented to the Emergency Department on the above date and was hospitalized for further evaluation of their emergent condition. - New Patient This patient is new to me today: Yes Date on this admission: 06/07/18 - Critical Care Critical Care patient: No
[2018-06-07] MEDS: DOCUSATE SODIUM 100 MG CAPSULE (FP) PO SCH ×2 (15:10→21:28)
[2018-06-07] MEDS ORDERED: CARVEDILOL 12.5 MG TABLET (FP) PO SCH (22:00)
[2018-06-07] MEDS ORDERED: SENNOSIDES 8.6MG TABLET (FP) PO SCH (22:00)
[2018-06-07] MEDS ORDERED: ATORVASTATIN CA 10 MG TABLET (FP) PO SCH (22:00)
[2018-06-07] MEDS ORDERED: CYCLOBENZAPRINE HCL 10 MG TABLET (FP) PO SCH (22:00)
[2018-06-08] MEDS: oxyCODONE HCL 5 MG TABLET PO SCH ×2 (02:25→05:44)
[2018-06-08] MEDS: DOCUSATE SODIUM 100 MG CAPSULE (FP) PO SCH ×2 (05:43→14:11)
[2018-06-08] MEDS ORDERED: MAGNESIUM HYDROX 2400MG/30ML ORAL SUSPENSION 30 ML CUP PO ONE (07:46)
--- NOTE | 2018-06-08 07:55 | SURG ---
Surgery Oracle Forms Developer Note Oracle Forms Developer: Caron Anderson PA-C (Suzy) Date of Service: 06/08/18 Diagnosis: C5-C6 and C6-C7 osteophyte disc complex with spinal stenosis, cervical spondylogenic myelopathy and left C6 and C7 radiculopathy Procedure: 1. Anterior cervical approach 2. Anterior cervical discectomy C5-C6, anterior cervical discectomy C6-C7 3. Partial colpectomy C5, partial colpectomy C6, partial colpectomy C7 4. Insertion of cage C5-C6 and C6-C7 (Biomechanical interbody device x2) 5. Anterior arthrodesis C5-C6, C6-C7 6. Anterior plating C5-C6, C6-C7 I was present for the entirety of the operative procedure. For further detail, please refer to operative report. Visit type - Case Type Case Type: Scheduled - Emergency Emergency Visit: No - New patient This patient is new to me today: Yes Date on this admission: 06/08/18 - Critical Care Critical Care patient: No
[2018-06-08] MEDS ORDERED: POLYETHYLENE GLYCOL 3350 119 GM BTL PO ONE (08:10)
[2018-06-08] MEDS ORDERED: PT OWN MED DRAWER 7, Y5N ONE (09:37)
[2018-06-08] MEDS: CYANOCOBALAMIN 1,000 MCG TABLET (FP) PO SCH (09:38)
[2018-06-08] MEDS: FUROSEMIDE 40 MG TABLET (FP) PO SCH (09:38)
[2018-06-08] MEDS: CARVEDILOL 25 MG TABLET (FP) PO SCH (09:38)
[2018-06-08] MEDS: GABAPENTIN 300 MG CAPSULE (FP) PO SCH (09:38)
[2018-06-08] MEDS: PANTOPRAZOLE 40 MG TABLET (FP) PO SCH (09:38)
[2018-06-08] MEDS: SPIRONOLACTONE 25 MG TABLET (FP) PO SCH (09:39)
[2018-06-08] MEDS: CHOLECALCIFEROL (VITAMIN D3) 400 UNIT TABLET (FP) PO SCH (09:42)
[2018-06-08 10:28] VITALS: BP 141/86; PULSE 76; TEMP 98
--- NOTE | 2018-06-08 10:31 | PN ---
Progress Note (short form) - Note Progress Note: POD 3, s/p C5-C6, C6-C7 ACDF Pt seen and examined. States she is doing well. Has been oob without issue. Tolerating soft foods, continues to have a sore throat, though improving. Reports LUE numbness/weakness seems improved. Voiding without issue. Denies cp/ sob, n/v/d, calf pain/edema. Vital Signs Temp 98.0 F 06/08/18 10:00 Pulse 76 06/08/18 10:00 Resp 20 06/08/18 10:00 BP 141/86 06/08/18 10:00 Pulse Ox 98 06/07/18 09:00 Intake & Output 06/07/18 06/07/18 06/08/18 11:59 23:59 11:59 Intake Total 750 250 Balance 750 250 Intake: Oral 750 250 Other: Voiding Method Toilet # Unmeasured Voids Void 2 1 Bowel Movement No No CBC, BMP 06/07/18 07:00 06/07/18 07:00 Gen: awake, alert, nad Neck: Dressing with scant serosanguinous strike through, minimal trace edema, mild ttp in right lower border of dressing. Resp: unlabored on RA Neuro: b/l ue open winder strength intact, b/l ue biceps/triceps/deltoids 5/5, SILT b/ l. B/L LE's 5/5 dorsi/plantarflexion, knee ext/flex, hip flexion, silt b/l A/P: 48 y/o F w/ PMHx fibromyalgia, gerd, hiatal hernia, htn, hypothyroid, neuropathy, obesity, zain, panic disorder, sciatica, spinal stenosis, now POD 3, POD 3, s/p C5-C6, C6-C7 ACDF. -Doing well this AM -Afebrile, VSS -planned for d/c home this morning -Discharge instructions printed and left in chart as [employer] was down at the completion of the case on Friday will d/w attending Dr Taylor
--- NOTE | 2018-06-08 13:01 | DS ---
Physical Exam: SUBJECTIVE: Patient seen and examined at bedside. POD3 C5-7 anterior discectomy/ laminectomy w/ fusion. Patient states pain improved w/ meds. No other complaints. denies CP, SOB, fever, chills, N/V/C/D, numbness, tingling. +flatus OBJECTIVE: Vital Signs Period Temp Pulse Resp BP Sys/Nam Pulse Ox Last 24 Hr 98.0 F-98.7 F 58-76 20-20 125-141/68-86 99 PHYSICAL EXAM GENERAL: The patient is awake, alert, and fully oriented, in no acute distress. HEAD: Normal with no signs of trauma. EYES: PERRL, extraocular movements intact, sclera anicteric, conjunctiva clear. No ptosis. ENT: nares patent, oropharynx clear without exudates, moist mucous membranes. anterior cervical bandage c/d/i. no active draining NECK: Trachea midline, full range of motion, supple. LUNGS: CTAB HEART: RRR, S1, S2 without murmur, rub or gallop. ABDOMEN: Soft, NTND, normoactive bowel sounds, no guarding, no rebound, no masses. EXTREMITIES: 2+ pulses, warm, well-perfused, no edema. NEUROLOGICAL: Cranial nerves II through XII grossly intact. Normal speech, gait not observed. sensation strength grossly intact PSYCH: Normal mood, normal affect. SKIN: Warm, dry, normal turgor, no rashes or lesions noted LABS HOSPITAL COURSE: Date of Admission:06/05/18 Date of Discharge: 06/08/18 Pt is a 48 y/o F with PMH fibromyalgia, gerd, hiatal hernia, htn, hypothyroid, neuropathy, obesity, zain, panic disorder, sciatica, spinal stenosis who is POD3 c5-7 discectomy and fusion w/ Dr. Taylor. Admitted for elective C5-C7 cervical fusion on 06/05. surgery was w/o complications. Leukocytosis noted but likely reactive from surgery. no signs of infection, afebrile. received yobani-operative abx. pain ctl w/ opiods and tylenol. +flatus and tolerating PO. Noted w/ good ambulation and upper extremity strength. Dr. Taylor has left in chart a detailed summary of discharge instructions for post operative recommendations. pt will f/u w/ ortho in office in [address] Taylor has prescribed pain meds for pt pt stable and ready for dc Minutes to complete discharge: 38 Discharge Summary Reason For Visit: RADICULOPATHY, CERVICAL REGION Current Active Problems Cervical vertebral fusion (Acute) Fibromyalgia (Chronic) GERD (gastroesophageal reflux disease) (Chronic) HTN (hypertension) (Chronic) Hypothyroid (Chronic) Condition: Stable - Instructions Diet, Activity, Other Instructions: you came in for elective neck spinal fusion surgery with Dr. Taylor. your surgery was without complications. Dr. Taylor has left in your chart a detailed summary of your discharge instructions for post operative recommendations. Please ask your nurse to give you a copy of Dr. Taylor's discharge instructions. Please resume your home meds Dr. Taylor will prescribe for you a script for your pain meds. If you do not receive it please call Dr. Taylor office. Caution using narcotic medication and only use as instructed. DO not drive or operate heavy machinery while taking this medication. They can also cause constipation so make sure your having regular bowel movements. If you continue to have constipation please take stool softeners as needed to ensure your having daily bowel movements. Increase your daily water and fiber in your diet. Please follow up with your primary care physician within 1 week Please follow up with Dr. Taylor in 5 days If you experience any more limb weakness, decreased sensation, numbness, tingling or any fevers, chest pain, shortness of breath, nausea, vomit, please call 911 or go to the ER Referrals: Preet Taylor MD [Staff Physician] - 1 Week Disposition: HOME - Home Medications Comprehensive Discharge Medication List: Ambulatory Orders Carvedilol 12.5 mg PO HS 06/04/18 Cholecalciferol (Vitamin D3) [Vitamin D3] 400 unit PO DAILY 06/04/18 Cyanocobalamin [Vitamin B12 -] 1,000 mcg PO DAILY 06/04/18 Cyclobenzaprine HCl [Flexeril -] 10 mg PO DAILY 06/04/18 Furosemide [Lasix] 40 mg PO DAILY 06/04/18 Simvastatin 20 mg PO HS 06/04/18 Spironolactone 12.5 mg PO DAILY 06/04/18 Zolpidem Tartrate [Ambien] 5 mg PO HS 06/04/18 Carvedilol 25 mg PO DAILY 06/05/18 Cyclobenzaprine HCl [Flexeril 10 mg] 1 tablet PO HS 06/06/18 Gabapentin 300 mg PO BID 06/06/18 oxyCODONE HCL [Roxicodone -] 5 mg PO Q6H PRN 7 Days #30 tablet MDD 5 06/08/18 This patient is new to me today: Yes Date on this admission: 06/08/18 Emergency Visit: Yes ED Registration Date: 06/05/18 Care time: The patient presented to the Emergency Department on the above date and was hospitalized for further evaluation of their emergent condition. Critical Care patient: No - Discharge Referral Referred to [facility] Med P.C.: No
--- NOTE | 2018-06-08 14:08 | PN ---
Teaching Attending Note Name of Resident: Tony Ervin ATTENDING PHYSICIAN STATEMENT I saw and evaluated the patient. I reviewed the resident's note and discussed the case with the resident. I agree with the resident's findings and plan as documented. SUBJECTIVE:pain is controlled. no BM since arrival. denies CP, SOB, fever, chills, N/V/C?D OBJECTIVE: Last Vital Signs Temp Pulse Resp BP Pulse Ox 98.0 F 76 20 141/86 99 06/08/18 10:00 06/08/18 10:00 06/08/18 10:00 06/08/18 10:00 06/08/18 09:00 General NAD HEENT anterior cervical bandage c/d/i. no active draining ASSESSMENT AND PLAN: 48yo F wtih PMH HTN, GERD, CIARA on Cpap, hypothyroid came for elective cervical fusion surgery 1. s/p C5-C7 cervical fusion on 06/05. pain improved. further recommendations per ortho. plan to f/u in 5 days 2. constipation- due to opiates. started on stool softeners. encouraged increase in water and fiber in diet. informed her need of having daily BM while on opiates 2. Leukocytosis- likely reactive from surgery. no signs of infection. received yobani-operative abx. will hold abx at this time 3. HTN- cont home medications 4. CIARA- has home CPAP machine 5. hypothyroid- cont home medications 6. DVT ppx- SCD 7. d/c home
--- NOTE | 2018-06-10 16:13 | PATH ---
Surgical Pathology Report Patient Name: MARY PARTIDA Med. Rec. #: [id number] /Age/Gender: 1970 (Age: 48) / F Account: [id number] Location: [facility] MED/SURG Taken: 06/05/2018 Received: 06/08/2018 Reported: 06/10/2018 Physicians: Preet Taylor M.D. Specimen(s) Received ANNULUS AND DISC Clinical History Cervical stenosis Final Diagnosis Annulus and disc, discectomy: BENIGN intervertebral disc tissue, dense fibroconnective tissue, and PORTION OF parathyroid tissue. Comment: Immunohistochemical stains performed and interpreted at [facility] show the parathyroid tissue is positive for AE1/3 and chromogranin. Additional immunohistochemical stain performed at [place], [place] ([id number]) and interpreted at [facility] show the parathyroid tissue is positive for PTH. Findings discussed with Dr. Taylor. Electronically Signed Felecia Khoury M.D. Gross Description Received in formalin labeled "annulus and disc," is a 4.0 x 3.2 x 0.5 cm aggregate of sales fragments of fibrocartilaginous tissue. A roofing sales representative portion is submitted in one cassette. 06/08/201806/08/2018
== END 2018-06-08 16:15 | disposition home or self-care (01) | DRG 29 ==
LOC: JSAMEDAYSX 11:54 → JICU 22:46
PROVIDERS: ADMIT Orthopaedic Surgery Orthopaedic Surgery of the Spine; ATTEND Internal Medicine
PROC: 0RT30ZZ Resection of Cervical Vertebral Disc, Open Approach (ICD-10-PCS; 2018-06-05)
PROC: 4A11X4G Monitoring of Peripheral Nervous Electrical Activity, Intraoperative, External Approach (ICD-10-PCS; 2018-06-05)
PROC: B01BZZZ Fluoroscopy of Spinal Cord (ICD-10-PCS; 2018-06-05)
PROC: 0RG20A0 Fusion of 2 or more Cervical Vertebral Joints with Interbody Fusion Device, Anterior Approach, Anterior Column, Open Approach (ICD-10-PCS; principal; 2018-06-05 14:00)
DX: M54.12 Radiculopathy, cervical region (principal); M47.12 Other spondylosis with myelopathy, cervical region; M48.02 Spinal stenosis, cervical region; E03.9 Hypothyroidism, unspecified; M79.7 Fibromyalgia; K44.9 Diaphragmatic hernia without obstruction or gangrene; K21.9 Gastro-esophageal reflux disease without esophagitis; G47.33 Obstructive sleep apnea (adult) (pediatric); G62.9 Polyneuropathy, unspecified; E66.9 Obesity, unspecified; Z68.33 Body mass index [BMI] 33.0-33.9, adult; F41.0 Panic disorder [episodic paroxysmal anxiety]; M54.30 Sciatica, unspecified side; I10 Essential (primary) hypertension; D72.829 Elevated white blood cell count, unspecified
CPT/HCPCS: 36415; 76000-TC-FY; 80048; 80053; 85025; 86850; 86900; 86901; 88305-TC; 88341-TC; 90732; G0009; J0131; J1100; J1644